=== PATIENT | female | born 1945 | race Caucasian/White ===

== ENCOUNTER 2018-12-16 09:25 | Inpatient (IN) | payer MEDICARE, BC ==
[2018-12-18] MEDS ORDERED: Magnesium Hydroxide LIQ* 30 ML UDC PO PRN (09:45)
[2018-12-18] MEDS ORDERED: Bisacodyl SUPP* 10 MG SUPP PR PRN (09:45)
[2018-12-18] MEDS ORDERED: Al Hydrox/Mg Hydrox/Simet LIQ* 30 ML UDC PO PRN (09:45)
[2018-12-18] MEDS ORDERED: oxyCODONE TAB* 5 MG TAB PO PRN (10:00)
[2018-12-18] MEDS ORDERED: Benzonatate CAP* 100 MG PO PRN (10:01)
--- NOTE | 2018-12-18 13:58 | HP ---
CC: Dr. Britt; Dr. Cha * REHABILITATION ADMISSION: DATE OF ADMISSION: 12/18/18 PRIMARY CARE PROVIDER: Dr. Britt. ORTHOPEDIC SURGEON: Dr. Cha. REASON FOR ADMISSION: Right hip fracture. HISTORY OF PRESENT ILLNESS: This is a 73-year-old woman who on 12/12/18 was at [facility]. She was bent over picking up packages and next thing she knew she was on the floor. She was originally taken to the emergency room at [facility], where she was found to have a right hip fracture and then she was transferred to [facility]. She was seen by Dr. Cha and taken to the OR on 12/14/18 for closed reduction and percutaneous IM fixation with short gamma nail of a right comminuted intertrochanteric fracture. She was given weightbearing as tolerated restrictions and started on Lovenox 40 mg daily for 4 weeks for DVT prophylaxis. In the postoperative phase, it has been noted that she has had some increasing tachycardia and some lower blood pressures. She has been given boluses and increased rates of IV fluids for some orthostasis as well as calcium supplementation. This has helped some, but she is remained with mild degrees of tachycardia and systolic blood pressures in the 90s intermittently. At times, she may feel a little lightheaded in transitioning from sitting to standing. Some dizziness predated her fall. She denies any chest pain, shortness of breath or pleurisy. She has a chronic cough that predates her admission as well. Prior to admission, she was independent with ADLs with mobility without any assistive device. She was modified independent for toileting and showering using adaptive equipment. With physical therapy here, she has required a moderate amount of assistance for bed mobility, minimal amount of assistance for transferring with a rolling walker and contact guard assistance for ambulating up to 50 feet. With occupational therapy, she has required total assist for lower body dressing, maximum amount of assistance for bathing and a total amount assistance for toileting. PAST MEDICAL HISTORY: 1. Hyperlipidemia. 2. Hypertension. 3. Status post right total knee replacement by Dr. Guido. 4. Status post tonsillectomy and adenoidectomy. 5. History of COPD. MEDICATIONS: Currently: 1. Multivitamin daily. 2. multivitamin daily. 3. Vitamin C 250 mg daily. 4. Lipitor 10 mg daily, substitute for Simvastatin 20 mg daily. 5. Zyrtec 10 mg daily, substitute for Claritin 10 mg daily. 6. Anoro Ellipta 62.5/25 one puff daily, patient using her own. 7. Flonase 2 sprays bilaterally daily, which is substituting for Nasonex that she uses at home. 8. Tylenol p.r.n. 9. Lovenox 40 mg subcutaneously daily. 10. Roxycodone 5 mg q.4 hours p.r.n. pain. 11. Tramadol 50 mg q. 6 hours p.r.n. pain. 12. Colace 100 mg b.i.d. 13. Senna 2 tablets q.p.m. 14. Tessalon 100 mg t.i.d. p.r.n. cough that she has only taken once. ALLERGIES: LATEX and no known drug allergies. FAMILY HISTORY: Mother, hypertension. Father, prostate cancer. Sister, breast cancer. SOCIAL HISTORY: She lives alone outside of [place]. She is since April 2018. No smoking or alcohol. She just retired from her [employer] business at the end of the year. Her [id number], Angelic Fuentes, is her healthcare proxy if she cannot make decisions for herself. Her phone number is [phone]. Her home is 1 level with no steps to enter. There is 1 step however into her washroom. REVIEW OF SYSTEMS: See history of present illness and past medical history. The remainder of 13-system review was completed. No other significant findings. PHYSICAL EXAMINATION GENERAL: Well developed, well nourished, appearing stated age. Mental Status: No acute distress. Alert and oriented x3. VITAL SIGNS: Temperature 98.2, heart rate 101, respirations 16, oxygen saturation 95% on room air, blood pressure 93/64. HEENT: Normocephalic, atraumatic. Oropharynx is clear. Moist mucous membranes. LUNGS: Shows bilateral inspiratory rales at the bases. ABDOMEN: Active bowel sounds. Soft, nontender, nondistended. EXTREMITIES: No clubbing or cyanosis. She has swelling throughout the right thigh and lower leg, more so than the left. Negative Homans'. No calf tenderness. MUSCULOSKELETAL EXAM: She has functional range of motion of all her major joints with limited testing of the right hip and knee secondary to her recent surgery. NEUROLOGICAL EXAM: Cranial nerves II through XII are intact. Upper and lower extremity motor 5/5 bilaterally with normal sensation with limited testing at the right hip and knee secondary to pain. LABORATORY DATA: Today, her white blood cell count is 6.5, hemoglobin 9, hematocrit 27, platelets 150. Sodium 139, potassium 3.8, BUN 11, creatinine 0.47, calcium 7.9, ionized calcium 1.14. Of note, she had a normal lactic acid level of 1.8 on 12/16/18 and serum osmolality was 289. IMPRESSION: A 73-year-old woman with right hip fracture. She will be admitted to [facility], so she can return to independent living. PLAN: 1. Right hip fracture: She needs to follow up with Dr. Cha. Continue weightbearing as tolerated to the right lower extremity. She has been taking minimal pain medicines and I will simplify her regimen to tramadol alone on an as needed basis. If she needs additional medication, we could add back in oxycodone 5 mg q.4 hours p.r.n. 2. DVT prophylaxis: Continue with Lovenox. She will need to be taught how to do this. 3. Tachycardia and mild hypotension: She is still being evaluated by the hospitalist for this. There is concern of increased urine output and they have ordered labs to evaluate for diabetes insipidus and endocrinology consultation. Continue to encourage oral fluids, but be aware of fluid overload as she already has some rales in both of her lungs. 4. Fluid, electrolytes, and nutrition: She has a history of vitamin D deficiency and normally takes a calcium supplement. I will also add an Oscal D one p.o. b.i.d. for now and she will have routine labs starting tomorrow. 5. Acute postoperative anemia: Follow up with labs tomorrow. Some of this may be dilutional as she has been receiving IV fluids to try to minimize tachycardia and improve her blood pressure. 6. Chronic obstructive pulmonary disease: Continue with her current medications. 7. Impaired mobility: She will be seen by Physical Therapy for bed mobility, transfer, gait, and stair training using the least restrictive assistive device. 8. Impaired self-care: She will be seen by Occupational Therapy for ADL and IADL training and equipment evaluation. 9. Advance directives. She is a full code. If she cannot make decisions for herself, her [id number], Angelic Fuentes makes decisions for her. Her phone number is [phone]. ESTIMATED LENGTH OF STAY: Approximately 10 to 14 days and return to home. [id number]/CPS #: [id number] JELENA
[2018-12-18] MEDS: Enoxaparin(*) 40 MG/0.4 ML SYR SUBCUT SCH (15:40)
[2018-12-18] MEDS: Acetaminophen TAB* 325 MG PO PRN ×2 (16:50→20:50)
[2018-12-18] MEDS: Atorvastatin* 10 MG TAB PO SCH (16:51)
[2018-12-18] MEDS: traMADol TAB* 50 MG PO PRN (18:54)
[2018-12-18] MEDS: Calcium/Vitamin D TAB 250/125* TAB PO SCH (20:50)
[2018-12-18] MEDS: Docusate CAP* 100 MG PO SCH (20:50)
[2018-12-19] MEDS: Acetaminophen TAB* 325 MG PO PRN ×2 (03:51→12:09)
[2018-12-19 05:07] LABS: ABS Basophils 0 10^3/ul (0-0.2); ABS Eosinophils 0.7 10^3/ul (0-0.6); ABS Lymphocytes 1.5 10^3/ul (1.0-4.8); ABS Monocytes 0.6 10^3/ul (0-0.8); ABS Neutrophils 3.5 10^3/ul (1.5-7.7); ABS Nucleated RBC 0 10^3/ul; Eosinophil % 11.4 %; Hematocrit 29 % (35-47); Hemoglobin 9.7 g/dl (12.0-16.0); Lymphocyte % 23.9 %; Mean Corpuscular HGB Conc 33 g/dl (31-36); Mean Corpuscular Hemoglobin 32 pg (27-31); Mean Corpuscular Volume 96 fL (80-97); Nucleated Red Blood Cells % 0.1; Platelet Count 184 10^3/ul (150-450); Red Blood Count 3.07 10^6/ul (4.00-5.40); Red Cell Distribution Width 14 % (10.5-15); White Blood Count 6.3 10^3/ul (3.5-10.8)
[2018-12-19 05:23] LABS: Albumin 2.7 g/dL (3.2-5.2); BUN/Creatinine Ratio 20.8 (8-20); Calcium 8.4 mg/dL (8.6-10.3); EGFR African American 136.1 (>60); EGFR Non-African American 112.5 (>60); Globulin 2.6 g/dL (2-4); Potassium 3.8 mmol/L (3.5-5.0); Total Bilirubin 0.8 mg/dL (0.2-1.0); Total Protein 5.3 g/dL (6.4-8.9)
[2018-12-19] MEDS: Ascorbic Acid TAB* 500 MG PO SCH (08:45)
[2018-12-19] MEDS: Fluticasone NASAL SPRAY 50MCG* 16 gm SPRAY BTL BOTH NARES SCH (08:46)
[2018-12-19] MEDS: Cetirizine* 10 MG TAB PO SCH (08:46)
[2018-12-19] MEDS: Calcium/Vitamin D TAB 250/125* TAB PO SCH ×2 (08:46→20:41)
[2018-12-19] MEDS: Docusate CAP* 100 MG PO SCH ×2 (08:46→20:41)
[2018-12-19] MEDS: traMADol TAB* 50 MG PO PRN ×2 (08:46→20:41)
[2018-12-19] MEDS: Multivitamins/Minerals TAB PO SCH (08:46)
[2018-12-19] MEDS: Prenatal Vitamin TAB PO SCH (08:46)
[2018-12-19] MEDS: UMECLIDIN MDI INH SCH (09:40)
[2018-12-19] MEDS: [UNRECOGNIZED DRUG - OTHER] INH SCH (09:40)
[2018-12-19] MEDS: Enoxaparin(*) 40 MG/0.4 ML SYR SUBCUT SCH (09:40)
[2018-12-19] MEDS: Atorvastatin* 10 MG TAB PO SCH (16:52)
--- NOTE | 2018-12-19 18:36 | PN ---
Progress Note Date of Service: 12/19/18 Note: DEREK CARCAMO was visited. Therapy notes read and reviewed. She has had a chronic cough for a year now and her doctor could not figure out why. She was supposed to see Dr. Ochoa, but broke her hip. Her BPs have been soft Current Medications: Active Medications Generic Name Dose Route Start Last Admin Trade Name Freq PRN Reason Stop Dose Admin Acetaminophen 650 mg 12/18/18 09:45 12/19/18 12:09 Tylenol Tab* PO 650 mg Q4H PRN Administration FEVER > 101 Al Hydrox/Mg Hydrox/Simethicone 30 ml 12/18/18 09:45 Maalox Plus* PO Q6H PRN INDIGESTION Ascorbic Acid 250 mg 12/19/18 09:00 12/19/18 08:45 Vitamin C Tab* PO 250 mg DAILY JASS Administration Atorvastatin Calcium 10 mg 12/18/18 17:00 12/19/18 16:52 Lipitor* PO 10 mg 1700 JASS Administration Benzonatate 100 mg 12/18/18 10:01 Tessalon Cap* PO TID PRN COUGH Bisacodyl 10 mg 12/18/18 09:45 Dulcolax Supp* [place] DAILY PRN CONSTIPATION Calcium/Vitamin D 1 tab 12/18/18 21:00 12/19/18 08:46 Oscal D Tab 250/125* PO 1 tab BID JASS Administration Cetirizine HCl 10 mg 12/19/18 09:00 12/19/18 08:46 Zyrtec* PO 10 mg DAILY JASS Administration Docusate Sodium 100 mg 12/18/18 21:00 12/19/18 08:46 Colace Cap* PO 100 mg BID JASS Administration Enoxaparin Sodium 40 mg 12/18/18 10:00 12/19/18 09:40 Lovenox(*) SUBCUT 40 mg Q24H JASS Administration Fluticasone Propionate 2 spray 12/19/18 09:00 12/19/18 08:46 Flonase Nasal [place] 50mcg* BOTH NARES 2 spray DAILY JASS Administration Magnesium Hydroxide 30 ml 12/18/18 09:45 Milk Of Magnesia Liq* PO Q6H PRN CONSTIPATION Multivitamins 1 tab 12/19/18 09:00 12/19/18 08:46 Vitamin Tab* PO 1 tab DAILY JASS Administration Multivitamins/Minerals 1 tab 12/19/18 09:00 12/19/18 08:46 Theragran/Minerals Tab* PO 1 tab DAILY JASS Administration Senna 2 tab 12/18/18 09:45 Senokot Tab* PO BEDTIME PRN CONSTIPATION Tramadol HCl 50 mg 12/18/18 10:00 12/19/18 08:46 Ultram* PO 50 mg Q6H PRN Administration PAIN Umeclidinium/Vilanterol 1 inh 12/19/18 09:00 12/19/18 09:40 Anoro 62.5/25 Ellipta Device (Nf) INH 1 inh DAILY JASS Administration Protocol Vital Signs: Vital Signs Temp Pulse Resp BP Pulse Ox 97.9 F 107 22 86/51 99 12/19/18 16:45 12/19/18 16:45 12/19/18 16:45 12/19/18 16:45 12/19/18 17:01 Lab Results: Laboratory Results - last 24 hr 12/19/18 12/19/18 04:54 04:54 WBC 6.3 RBC 3.07 L Hgb 9.7 L Hct 29 L MCV 96 MCH 32 H MCHC 33 RDW 14 Plt Count 184 MPV 8.0 Neut % (Auto) 55.3 Lymph % (Auto) 23.9 [place] % (Auto) 8.8 Eos % (Auto) 11.4 Baso % (Auto) 0.6 Absolute Neuts (auto) 3.5 Absolute Lymphs (auto) 1.5 Absolute Monos (auto) 0.6 Absolute Eos (auto) 0.7 H Absolute Basos (auto) 0 Absolute Nucleated RBC 0 Nucleated RBC % 0.1 Sodium 139 Potassium 3.8 Chloride 106 Carbon Dioxide 28 Anion Gap 5 BUN 11 Creatinine 0.53 Est GFR ( Amer) 136.1 Est GFR (Non-Af Amer) 112.5 BUN/Creatinine Ratio 20.8 H Glucose 106 H Calcium 8.4 L Total Bilirubin 0.80 AST 23 ALT 15 Alkaline Phosphatase 55 Total Protein 5.3 L Albumin 2.7 L Globulin 2.6 Albumin/Globulin Ratio 1.0 Exam: LUNGS: Clear bilaterally HEART: regular rhythm ABDOMEN: Soft EXTREMITIES: RLE Wound clean NEUROLOGIC: A & O x 3. Sensation intact. Muscle strength 5/5 UE, RLE at least 4/ 5 Assessment/Plan: 1. Right Hip Fracture: WBAT. Follow up with Dr. Cha 2. Hypotension: Monitor 3. DVT Prophylaxis: Lovenox for 4 weeks post-op 4. Advanced Directives: Full code. Daughter in law is HCP 5. COPD: Anoro/Flonase 12/19/18 18:43 12/19/18 18:44
[2018-12-20] MEDS: Acetaminophen TAB* 325 MG PO PRN ×2 (05:21→21:03)
[2018-12-20] MEDS: Ascorbic Acid TAB* 500 MG PO SCH (08:39)
[2018-12-20] MEDS: Calcium/Vitamin D TAB 250/125* TAB PO SCH ×2 (08:40→21:01)
[2018-12-20] MEDS: Fluticasone NASAL SPRAY 50MCG* 16 gm SPRAY BTL BOTH NARES SCH ×2 (08:40→21:04)
[2018-12-20] MEDS: Cetirizine* 10 MG TAB PO SCH (08:40)
[2018-12-20] MEDS: Docusate CAP* 100 MG PO SCH ×2 (08:40→21:00)
[2018-12-20] MEDS: Multivitamins/Minerals TAB PO SCH (08:41)
[2018-12-20] MEDS: Prenatal Vitamin TAB PO SCH (08:41)
[2018-12-20] MEDS: traMADol TAB* 50 MG PO PRN ×3 (10:07→23:28)
[2018-12-20] MEDS: [UNRECOGNIZED DRUG - OTHER] INH SCH (10:08)
[2018-12-20] MEDS: Enoxaparin(*) 40 MG/0.4 ML SYR SUBCUT SCH (10:08)
[2018-12-20] MEDS: UMECLIDIN MDI INH SCH (10:08)
--- NOTE | 2018-12-20 12:36 | PMRUTEAM ---
PMRU: Team Meeting Current Status: Nursing: Current Status Skin Deviations [Right Groin] Rash Skin Deviations [Bilateral Other Foot] Skin Deviations [Bilateral Arm Bruise ] Skin Deviations [Right Hip] Incision Skin Deviation Description [ s/p moisture per pt report; powder applied Right Groin] Skin Deviation Description [ dry skin Bilateral Foot] Skin Deviation Description [ Proximal drsg in place Right Hip] Distal incisions healing, GRACIELA - madelyn intact Bladder Current Status Stress incontinence - walking to bathroom to void Bowel Current Status Walking to bathroom to void Nutrition Current Status 75% of most meals Medication Current Status Pain meds given Physical Therapy: Current Status Bed Mobility Assistance Min Assist Transfer Mobility Assistance Contact Guard Assist Transfer/Bed Mobility Rolling Walker Recommended Devices Ambulation Assistance Supervision Ambulation Assistive Devices Rolling Walker Number of Feet Patient 105 Ambulated Stairs Assistance Contact Guard Assist Stairs Recommended Devices Two Rails Number of Stairs 5 Curb Not Tested Occupational Therapy: Current Status Upper Body Dressing Supervision Lower Body Dressing Max Asst Bathing Mod Assist Toileting Contact Guard Assist Toilet Transfer Contact Guard Assist Shower Transfer Contact Guard Assist Eating Independent Rec Therapy: Current Status Summary of Assessment and Sweatband Drummer met with the patient to complete RT Clinical Impression assessment. Patient was open to meeting with brief writer and was visiting with her son at the time. Patient presented euthymic with congruent affect. With prompting, the patient identified a few interests. 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 Patient has a puzzle book in her room, is open to continued leisure visits. Treatment Goals Patient will engage in recreation and leisure activities while on the unit. Treatment Plan Provide and encourage involvement in RT services. Meet with patient regularly for 1:1 leisure sessions. Social Work: Current Status Discharge Plan Return home with out patient therapy and family support Potential for Family Training TBD (pt lives alone but has support from her daughter in law) Anticipated Discharge Home Destination Anticipated Discharge no available home care [facility] in [facility] Destination Comment Discharge With out patient therapy and family support Nutrition: Current Status Monitoring Pt admitted to [facility] s/p R hip fx and closed reduction and percutaneous IM fixation 12/14/18. Pt eating 70-100% of meals so far; no evidence difficulty chewing/swallowing per nursing assessments. Soft formed BM noted yesterday; loose BM today. Skin intact; Sam 20 (low risk). Pt on appropriate regular diet. Full nutrition assessment to follow per protocol. Goals: Physical Therapy: Initial Goals Bed Mobility Assistance Independent Transfer Mobility Assistance Independent Transfer/Bed Mobility Rolling Walker Recommended Devices Ambulation Independent Ambulation Recommended Devices Rolling Walker Ambulation Distance 150 Stairs Assistance Independent Stair Recommended Devices Two Rails Number of Stairs 5 Home Exercise Program Independent Assistance Physical Therapy: Updated Goals Transfer/Bed Mobility Rolling Walker Recommended Devices Occupational Therapy: Initial Goals Goals to be Completed in (Days 7-9 ) Upper Body Bathing Routine Independent Lower Body Bathing Routine Modified Independent with Upper Body Dressing Routine Independent Lower Body Dressing Routine Modified Independent with Toilet Hygeine and Clothing Modified Independent with Management Routine Toilet Transfer Routine Modified Independent with Step-In Shower Transfer Supervision/Set Up Routine Functional Transfers for ADL Modified Independent with Grooming Routine Independent Feeding Routine Independent Nursing: Goals Bladder Goal Independent Bowel Goal Independent Nutrition Goal Independent - 100% of all meals Medication Goal Independent Nutrition: Goals Intervention Goals 1. Intake will remain adequate to promote post-op healing 2. Pt will maintain regular bowel pattern without constipation (or diarrhea) Social Work: Goals Discharge Plan Return home with out patient therapy and family support Potential for Family Training TBD (pt lives alone but has support from her daughter in law) Anticipated Discharge Home Destination Anticipated Discharge no available home care [facility] in [facility] Destination Comment Discharge With out patient therapy and family support Care Plan: Care Plan ADL's - Improve/Maintain Start: 12/18/18 16:41 Freq: DAILY Status: Active Target: Protocol: Activity Type Activity Date Activity User E-Sign Co-Sign Detail Recorded Client Recorded Date Recorded By Document 12/19/18 14:51 [id number] 12/19/18 14:52 [id number] 12/19/18 14:51 PMRU Outcome: ADL's/ADL Transfers Orders/Interventions Occupational Therapy Evaluation & Treatment Communication Tool in Patient Room Patient to receive OT 5x/wk for 60-120 Therex min/day Self Care Management UE/LE ADL's with Assist Yes: mod I ADL Transfers with Assist Yes: mod I Toileting: Transfers,Clothing Management Yes: mod I ,Hygeine w/Assist Progression Toward Outcome/Goals Progressing Outcome/Goals Met Pt is a 73 year old female s/p fall with right hip fx s/ p gamma nailing with WBAT precautions. Pt currently has R hip pain, limited R hip AROM, decreased balance, decreased endurance which limits independence with bathing, dressing, toileting, and transfers. Pt will benefit from acute skilled OT intervention in a rehabilitation setting to maximize independence and safety with ADLs and ADL transfers. Pt is agreeable to OT POC. Cardiovascular- Improve/Maintain Start: 12/18/18 16:41 Freq: QSHIFT Status: Active Target: Protocol: Activity Type Activity Date Activity User E-Sign Co-Sign Detail Recorded Client Recorded Date Recorded By Document 12/19/18 20:00 [id number] 12/19/18 21:35 [id number] 12/19/18 20:00 PMRU Outcome: Cardiovascular Vital Signs q Shift for 48hrs Then BID Yes Daily Weight Ordered No Current Cardiovascular Outcome/Goal Maintain/ Achieve Baseline HR, BP , Perfusion Maintain/ Achieve Hemodynamic Stability Free of Abnormal Cardiac Symptoms Progression Toward Outcome/Goal Progressing DVT Prophylaxis- Improve/Maintain Start: 12/18/18 16:41 Freq: QSHIFT Status: Active Target: Protocol: Activity Type Activity Date Activity User E-Sign Co-Sign Detail Recorded Client Recorded Date Recorded By Document 12/19/18 20:00 [id number] 12/19/18 21:35 [id number] 12/19/18 20:00 PMRU Outcome: DVT Prophylaxis Outcome/Goals Remains Free of DVT Complies with DVT Prophylaxis /Treatment TEDS Stockings on Every AM, Off at HS Progression Toward Outcome/Goals Progressing Discharge Planning - Improve/Maintain Start: 12/18/18 16:41 Freq: DAILY Status: Active Target: Protocol: Activity Type Activity Date Activity User E-Sign Co-Sign Detail Recorded Client Recorded Date Recorded By Document 12/20/18 00:25 [id number] 12/20/18 00:25 [id number] 12/20/18 00:25 PMRU Outcome: Discharge Planning Update Patient Family No Outcome/Goals Demonstrates Understanding of Discharge Plan Progression Toward Outcome/Goals Progressing Education-Improve/Maintain Start: 12/18/18 16:41 Freq: QSHIFT Status: Active Target: Protocol: Activity Type Activity Date Activity User E-Sign Co-Sign Detail Recorded Client Recorded Date Recorded By Document 12/19/18 20:00 [id number] 12/19/18 21:35 [id number] 12/19/18 20:00 PMRU Outcome: Education Outcome/Goals Demonstrate/ Verbalize Understanding of Written Discharge Instructions Demonstrates Skills Encourage Questions Pain/Comfort- Improve/Maintain Start: 12/18/18 16:41 Freq: QSHIFT Status: Active Target: Protocol: Activity Type Activity Date Activity User E-Sign Co-Sign Detail Recorded Client Recorded Date Recorded By Document 12/19/18 20:00 [id number] [facility]-C03 12/19/18 21:35 [id number] 12/19/18 20:00 PMRU Outcome: Pain/Comfort Outcome/Goals Demonstrates Knowledge and Use of Available Comfort Measures Achieves Acceptable Comfort/Pain Level as Determined by Patient/Condit Maintain Comfort Level Allowing Patient to Fully Participate in Rehab Progression Toward Outcome/Goals Progressing Respiratory - Improve/Maintain Start: 12/18/18 16:41 Freq: QSHIFT Status: Active Target: Protocol: Activity Type Activity Date Activity User E-Sign Co-Sign Detail Recorded Client Recorded Date Recorded By Document 12/19/18 20:00 [id number] [facility]-C03 12/19/18 21:35 [id number] 12/19/18 20:00 PMRU Outcome: Respiratory Does Patient Have a Trach No Outcome/Goals Maintain/ Improve Activity Tolerance Prevent Pneumonia/ Atelectasis Progression Toward Outcome/Goals Progressing Safety- Improve/Maintain Start: 12/18/18 16:41 Freq: QSHIFT Status: Active Target: Protocol: Activity Type Activity Date Activity User E-Sign Co-Sign Detail Recorded Client Recorded Date Recorded By Document 12/19/18 20:00 [id number] [facility]-C03 12/19/18 21:35 [id number] 12/19/18 20:00 PMRU Outcome: Safety Outcome/Goals Remain Free of Injury or Harm Cooperates with Safety Measures for Least Restrictive Environment Prevent Falls/ Injury Progression Toward Outcome/Goals Progressing Skin- Improve/Maintain Start: 12/18/18 16:41 Freq: QSHIFT Status: Active Target: Protocol: Activity Type Activity Date Activity User E-Sign Co-Sign Detail Recorded Client Recorded Date Recorded By Document 12/19/18 20:00 [id number] [facility]-C03 12/19/18 21:35 [id number] 12/19/18 20:00 PMRU Outcome: Skin Skin Risk Level Medium Outcome/Goals Maintain/ Improve Skin Intergrity Surgical Incisions Healing Progression Toward Outcome/Goals Progressing Medicine Note: Length of Stay: 1 week Anticipated Discharge Destination: Home Tentative Discharge Date: 12/27/18 Discharged to: Home
[2018-12-20] MEDS: Atorvastatin* 10 MG TAB PO SCH (16:10)
--- NOTE | 2018-12-20 19:06 | PN ---
Progress Note Date of Service: 12/20/18 Note: DEREK CARCAMO was visited. Therapy notes read and reviewed. She was discussed in interdisciplinary team rounds. Some concerns about incontinence when she stands. Will check PVR Current Medications: Active Medications Generic Name Dose Route Start Last Admin Trade Name Freq PRN Reason Stop Dose Admin Acetaminophen 650 mg 12/18/18 09:45 12/20/18 05:21 Tylenol Tab* PO 650 mg Q4H PRN Administration FEVER > 101 Al Hydrox/Mg Hydrox/Simethicone 30 ml 12/18/18 09:45 Maalox Plus* PO Q6H PRN INDIGESTION Ascorbic Acid 250 mg 12/19/18 09:00 12/20/18 08:39 Vitamin C Tab* PO 250 mg DAILY JASS Administration Atorvastatin Calcium 10 mg 12/18/18 17:00 12/20/18 16:10 Lipitor* PO 10 mg 1700 JASS Administration Benzonatate 100 mg 12/18/18 10:01 Tessalon Cap* PO TID PRN COUGH Bisacodyl 10 mg 12/18/18 09:45 Dulcolax Supp* [place] DAILY PRN CONSTIPATION Calcium/Vitamin D 1 tab 12/18/18 21:00 12/20/18 08:40 Oscal D Tab 250/125* PO 1 tab BID JASS Administration Cetirizine HCl 10 mg 12/19/18 09:00 12/20/18 08:40 Zyrtec* PO 10 mg DAILY JASS Administration Docusate Sodium 100 mg 12/18/18 21:00 12/20/18 08:40 Colace Cap* PO 100 mg BID JASS Administration Enoxaparin Sodium 40 mg 12/18/18 10:00 12/20/18 10:08 Lovenox(*) SUBCUT 40 mg Q24H JASS Administration Fluticasone Propionate 2 spray 12/20/18 21:00 Flonase Nasal [place] 50mcg* BOTH NARES BID JASS Magnesium Hydroxide 30 ml 12/18/18 09:45 Milk Of Magnesia Liq* PO Q6H PRN CONSTIPATION Multivitamins 1 tab 12/19/18 09:00 12/20/18 08:41 Vitamin Tab* PO 1 tab DAILY JASS Administration Multivitamins/Minerals 1 tab 12/19/18 09:00 12/20/18 08:41 Theragran/Minerals Tab* PO 1 tab DAILY JASS Administration Senna 2 tab 12/18/18 09:45 Senokot Tab* PO BEDTIME PRN CONSTIPATION Tramadol HCl 50 mg 12/18/18 10:00 12/20/18 16:10 Ultram* PO 50 mg Q6H PRN Administration PAIN Umeclidinium/Vilanterol 1 inh 12/19/18 09:00 12/20/18 10:08 Anoro 62.5/25 Ellipta Device (Nf) INH 1 inh DAILY JASS Administration Protocol Vital Signs: Vital Signs Temp Pulse Resp BP Pulse Ox 97.8 F 111 18 99/65 100 12/20/18 15:44 12/20/18 15:44 12/20/18 16:10 12/20/18 15:44 12/20/18 15:44 Exam: LUNGS: Clear bilaterally HEART: regular rhythm ABDOMEN: Soft EXTREMITIES: RLE Wound clean NEUROLOGIC: A & O x 3. Sensation intact. Muscle strength 5/5 UE, RLE at least 4/ 5 Assessment/Plan: 1. Right Hip Fracture: WBAT. Follow up with Dr. Cha 2. Hypotension: Monitor 3. DVT Prophylaxis: Lovenox for 4 weeks post-op 4. Advanced Directives: Full code. Daughter in law is HCP 5. COPD: Anoro/Flonase 6. Chronic Cough: has been looked at and a variety of medications have been tried. 7. Urinary Incontinence: Predates her fall. Will bladder scan to make sure not overflow incontinence 12/20/18 19:07 12/20/18 19:08
[2018-12-20] MEDS: Senna TAB PO PRN (21:00)
[2018-12-21] MEDS: Acetaminophen TAB* 325 MG PO PRN ×2 (04:50→19:08)
[2018-12-21] MEDS: Docusate CAP* 100 MG PO SCH ×2 (09:04→19:09)
[2018-12-21] MEDS: Cetirizine* 10 MG TAB PO SCH (09:09)
[2018-12-21] MEDS: Multivitamins/Minerals TAB PO SCH (09:09)
[2018-12-21] MEDS: Ascorbic Acid TAB* 500 MG PO SCH (09:09)
[2018-12-21] MEDS: Prenatal Vitamin TAB PO SCH (09:09)
[2018-12-21] MEDS: Calcium/Vitamin D TAB 250/125* TAB PO SCH ×2 (09:10→19:09)
[2018-12-21] MEDS: Enoxaparin(*) 40 MG/0.4 ML SYR SUBCUT SCH ×2 (09:10→09:11)
[2018-12-21] MEDS: traMADol TAB* 50 MG PO PRN (09:10)
[2018-12-21] MEDS: Fluticasone NASAL SPRAY 50MCG* 16 gm SPRAY BTL BOTH NARES SCH ×2 (09:12→19:11)
[2018-12-21] MEDS: UMECLIDIN MDI INH SCH (09:13)
[2018-12-21] MEDS: [UNRECOGNIZED DRUG - OTHER] INH SCH (09:13)
[2018-12-21] MEDS: Atorvastatin* 10 MG TAB PO SCH (17:10)
--- NOTE | 2018-12-21 18:29 | PN ---
Progress Note Date of Service: 12/21/18 Note: DEREK CARCAMO was visited. Therapy notes read and reviewed. She feels that her cough may have been better when she took Mucinex and Claritin. I will order. Otherwise doing okay. Current Medications: Active Medications Generic Name Dose Route Start Last Admin Trade Name Freq PRN Reason Stop Dose Admin Acetaminophen 650 mg 12/18/18 09:45 12/21/18 04:50 Tylenol Tab* PO 650 mg Q4H PRN Administration FEVER > 101 Al Hydrox/Mg Hydrox/Simethicone 30 ml 12/18/18 09:45 Maalox Plus* PO Q6H PRN INDIGESTION Ascorbic Acid 250 mg 12/19/18 09:00 12/21/18 09:09 Vitamin C Tab* PO 250 mg DAILY JASS Administration Atorvastatin Calcium 10 mg 12/18/18 17:00 12/21/18 17:10 Lipitor* PO 10 mg 1700 JASS Administration Benzonatate 100 mg 12/18/18 10:01 Tessalon Cap* PO TID PRN COUGH Bisacodyl 10 mg 12/18/18 09:45 Dulcolax Supp* MD DAILY PRN CONSTIPATION Calcium/Vitamin D 1 tab 12/18/18 21:00 12/21/18 09:10 Oscal D Tab 250/125* PO 1 tab BID JASS Administration Docusate Sodium 100 mg 12/18/18 21:00 12/21/18 09:04 Colace Cap* PO Not Given BID JASS Enoxaparin Sodium 40 mg 12/21/18 09:00 12/21/18 09:10 Lovenox(*) SUBCUT 40 mg Q24HR JASS Administration Fluticasone Propionate 2 spray 12/20/18 21:00 12/21/18 09:12 Flonase Nasal Dennis 50mcg* BOTH NARES 2 spray BID JASS Administration Guaifenesin 600 mg 12/21/18 21:00 Mucinex* PO BID JASS Magnesium Hydroxide 30 ml 12/18/18 09:45 Milk Of Magnesia Liq* PO Q6H PRN CONSTIPATION Multivitamins 1 tab 12/19/18 09:00 12/21/18 09:09 Vitamin Tab* PO 1 tab DAILY JASS Administration Multivitamins/Minerals 1 tab 12/19/18 09:00 12/21/18 09:09 Theragran/Minerals Tab* PO 1 tab DAILY JASS Administration Pto: (Claritin D 120 120 mg 12/22/18 09:00 Mg) PO BID JASS Senna 2 tab 12/18/18 09:45 12/20/18 21:00 Senokot Tab* PO 2 tab BEDTIME PRN Administration CONSTIPATION Tramadol HCl 50 mg 12/18/18 10:00 12/21/18 09:10 Ultram* PO 50 mg Q6H PRN Administration PAIN Umeclidinium/Vilanterol 1 inh 12/19/18 09:00 12/21/18 09:13 Anoro 62.5/25 Ellipta Device (Nf) INH 1 inh DAILY JASS Administration Protocol Vital Signs: Vital Signs Temp Pulse Resp BP Pulse Ox 98.3 F 99 18 107/67 100 12/21/18 16:18 12/21/18 16:18 12/21/18 16:18 12/21/18 16:18 12/21/18 16:18 Exam: LUNGS: Clear bilaterally HEART: regular rhythm ABDOMEN: Soft EXTREMITIES: RLE Wound clean NEUROLOGIC: A & O x 3. Sensation intact. Muscle strength 5/5 UE, RLE at least 4/ 5 Assessment/Plan: 1. Right Hip Fracture: WBAT. Follow up with Dr. Cha 2. Hypotension: Monitor 3. DVT Prophylaxis: Lovenox for 4 weeks post-op 4. Advanced Directives: Full code. Daughter in law is HCP 5. COPD: Anoro/Flonase 6. Chronic Cough: has been looked at and a variety of medications have been tried. 7. Urinary Incontinence: Predates her fall. Bladder scan showed no PVR 12/21/18 18:29 12/21/18 18:30
[2018-12-21] MEDS: guaiFENesin ER TAB 600 MG PO SCH (19:09)
[2018-12-21] MEDS: Senna TAB PO PRN (19:09)
[2018-12-22] MEDS: Acetaminophen TAB* 325 MG PO PRN ×2 (00:20→21:43)
[2018-12-22] MEDS: Fluticasone NASAL SPRAY 50MCG* 16 gm SPRAY BTL BOTH NARES SCH ×2 (10:00→21:48)
[2018-12-22] MEDS: guaiFENesin ER TAB 600 MG PO SCH ×2 (10:00→21:42)
[2018-12-22] MEDS: Prenatal Vitamin TAB PO SCH (10:00)
[2018-12-22] MEDS: PSEUDOEPHEDRINE PO SCH ×2 (10:00→21:45)
[2018-12-22] MEDS: LORATADINE PO SCH ×2 (10:00→21:45)
[2018-12-22] MEDS: Multivitamins/Minerals TAB PO SCH (10:00)
[2018-12-22] MEDS: traMADol TAB* 50 MG PO PRN ×2 (10:01→16:32)
[2018-12-22] MEDS: Docusate CAP* 100 MG PO SCH ×2 (10:01→21:42)
[2018-12-22] MEDS: Ascorbic Acid TAB* 500 MG PO SCH (10:01)
[2018-12-22] MEDS: Calcium/Vitamin D TAB 250/125* TAB PO SCH ×2 (10:01→21:42)
[2018-12-22] MEDS: [UNRECOGNIZED DRUG - OTHER] INH SCH (10:03)
[2018-12-22] MEDS: UMECLIDIN MDI INH SCH (10:03)
[2018-12-22] MEDS: Enoxaparin(*) 40 MG/0.4 ML SYR SUBCUT SCH (10:04)
[2018-12-22] MEDS: Atorvastatin* 10 MG TAB PO SCH (16:32)
--- NOTE | 2018-12-22 19:57 | PN ---
Progress Note Date of Service: 12/22/18 Note: DEREK CARCAMO was visited. Therapy notes read and reviewed. I met with Derek and her family as well as with the therapy team. She will be able to go home tomorrow as she is doing quite well. She was able to have a BM Current Medications: Active Medications Generic Name Dose Route Start Last Admin Trade Name Freq PRN Reason Stop Dose Admin Acetaminophen 650 mg 12/18/18 09:45 12/22/18 00:20 Tylenol Tab* PO 650 mg Q4H PRN Administration FEVER > 101 Al Hydrox/Mg Hydrox/Simethicone 30 ml 12/18/18 09:45 Maalox Plus* PO Q6H PRN INDIGESTION Ascorbic Acid 250 mg 12/19/18 09:00 12/22/18 10:01 Vitamin C Tab* PO 250 mg DAILY JASS Administration Atorvastatin Calcium 10 mg 12/18/18 17:00 12/22/18 16:32 Lipitor* PO 10 mg 1700 JASS Administration Benzonatate 100 mg 12/18/18 10:01 Tessalon Cap* PO TID PRN COUGH Bisacodyl 10 mg 12/18/18 09:45 Dulcolax Supp* AL DAILY PRN CONSTIPATION Calcium/Vitamin D 1 tab 12/18/18 21:00 12/22/18 10:01 Oscal D Tab 250/125* PO 1 tab BID JASS Administration Docusate Sodium 100 mg 12/18/18 21:00 12/22/18 10:01 Colace Cap* PO 100 mg BID JASS Administration Enoxaparin Sodium 40 mg 12/21/18 09:00 12/22/18 10:04 Lovenox(*) SUBCUT 40 mg Q24HR JASS Administration Fluticasone Propionate 2 spray 12/20/18 21:00 12/22/18 10:00 Flonase Nasal [place] 50mcg* BOTH NARES 2 spray BID JASS Administration Guaifenesin 600 mg 12/21/18 21:00 12/22/18 10:00 Mucinex* PO 600 mg BID JASS Administration Magnesium Hydroxide 30 ml 12/18/18 09:45 Milk Of Magnesia Liq* PO Q6H PRN CONSTIPATION Multivitamins 1 tab 12/19/18 09:00 12/22/18 10:00 Vitamin Tab* PO 1 tab DAILY JASS Administration Multivitamins/Minerals 1 tab 12/19/18 09:00 12/22/18 10:00 Theragran/Minerals Tab* PO 1 tab DAILY JASS Administration Pto: (Claritin D 120 120 mg 12/22/18 09:00 12/22/18 10:00 Mg) PO 120 mg BID JASS Administration Senna 2 tab 12/18/18 09:45 12/21/18 19:09 Senokot Tab* PO 2 tab BEDTIME PRN Administration CONSTIPATION Tramadol HCl 50 mg 12/18/18 10:00 12/22/18 16:32 Ultram* PO 50 mg Q6H PRN Administration PAIN Umeclidinium/Vilanterol 1 inh 12/19/18 09:00 12/22/18 10:03 Anoro 62.5/25 Ellipta Device (Nf) INH 1 inh DAILY JASS Administration Protocol Vital Signs: Vital Signs Temp Pulse Resp BP Pulse Ox 98.1 F 109 18 105/67 99 12/22/18 16:28 12/22/18 16:28 12/22/18 16:32 12/22/18 16:28 12/22/18 17:21 Exam: LUNGS: Clear bilaterally HEART: regular rhythm ABDOMEN: Soft EXTREMITIES: RLE Wound clean NEUROLOGIC: A & O x 3. Sensation intact. Muscle strength 5/5 UE, RLE at least 4/ 5 Assessment/Plan: 1. Right Hip Fracture: WBAT. Follow up with Dr. Cha 2. Hypotension: Monitor 3. DVT Prophylaxis: Lovenox for 4 weeks post-op 4. Advanced Directives: Full code. Daughter in law is HCP 5. COPD: Anoro/Flonase 6. Chronic Cough: has been looked at and a variety of medications have been tried. 7. Urinary Incontinence: Predates her fall. Bladder scan showed no PVR 12/22/18 19:57
[2018-12-22] MEDS: Senna TAB PO PRN (21:43)
[2018-12-23] MEDS: Acetaminophen TAB* 325 MG PO PRN ×2 (01:44→10:30)
[2018-12-23 05:37] VITALS: BP 106/66
[2018-12-23] MEDS: Ascorbic Acid TAB* 500 MG PO SCH (10:27)
[2018-12-23] MEDS: Calcium/Vitamin D TAB 250/125* TAB PO SCH (10:27)
[2018-12-23] MEDS: LORATADINE PO SCH (10:28)
[2018-12-23] MEDS: Docusate CAP* 100 MG PO SCH (10:28)
[2018-12-23] MEDS: guaiFENesin ER TAB 600 MG PO SCH (10:28)
[2018-12-23] MEDS: Enoxaparin(*) 40 MG/0.4 ML SYR SUBCUT SCH (10:28)
[2018-12-23] MEDS: Fluticasone NASAL SPRAY 50MCG* 16 gm SPRAY BTL BOTH NARES SCH (10:28)
[2018-12-23] MEDS: Multivitamins/Minerals TAB PO SCH (10:28)
[2018-12-23] MEDS: PSEUDOEPHEDRINE PO SCH (10:28)
[2018-12-23] MEDS: UMECLIDIN MDI INH SCH (10:29)
[2018-12-23] MEDS: Prenatal Vitamin TAB PO SCH (10:29)
[2018-12-23] MEDS: [UNRECOGNIZED DRUG - OTHER] INH SCH (10:29)
[2018-12-23] MEDS: traMADol TAB* 50 MG PO PRN (14:35)
--- NOTE | 2018-12-25 22:10 | DS ---
CC: Dr. Yoshi Britt * DISCHARGE SUMMARY: DATE OF ADMISSION: 12/18/18 DATE OF DISCHARGE: 12/23/18 DISCHARGE DIAGNOSES: 1. Right hip fracture. 2. Right total knee replacement, remote. 3. COPD. 4. Hypertension. 5. Hyperlipidemia. HISTORY OF PRESENT ILLNESS AND HOSPITAL COURSE: For complete history of the events leading up to her rehab stay, please see the history and physical dictated by Dr. Kaylen Steinberg on 12/18/18. While on the rehab unit, the patient continued to have a mild chronic cough, which she has had for over a year. It has been worked up by her primary care doctor and she had an appointment to see Dr. Ochoa, but was not able to make it because of her hip. She had slightly low blood pressures on admission, but these normalized. Otherwise, she was fairly stable from a medical point of view. She was maintained on Lovenox for DVT prophylaxis. The patient otherwise was medically stable. She was seen by both physical and occupational therapy and made good gains with both disciplines. With physical therapy at the time of admission, the patient required min assist to do a transfer. She was contact guard to ambulate with occupational therapy at the time of admission. She was supervision for upper body dressing, max assist for lower body dressing, mod assist for bathing, mod assist for toilet transfers. By the time of discharge, the patient was independent with transfers, independent ambulating 150 feet, independent going up and down 5 steps, independent with dressing, independent with toileting and toilet transfers. The patient was discharged home on . DISCHARGE DIET: Regular. DISCHARGE MEDICATIONS: 1. Vitamin C 250 mg daily. 2. Tessalon Perles 100 mg three times a day as needed. 3. Claritin-D 120 mg twice daily. 4. Lovenox 40 mg daily for 15 days. 5. Flonase 2 sprays to both nares twice daily. 6. Mucinex 600 mg twice daily. 7. Tramadol 50 mg every 6 hours as needed. 8. Anoro 62.5/25 Ellipta 1 inhalation daily. 9. Zocor 20 mg daily. SERVICES AFTER DISCHARGE: The patient will have outpatient physical therapy at [facility]. FOLLOWUP: She will follow up with her primary care doctor, Dr. Yoshi Britt as well as with her orthopedic surgeon, Dr. Dawson Cha. [id number]/[facility] #: [id number] JELENA
== END 2018-12-23 14:30 | disposition home or self-care (01) | DRG 561 ==
LOC: PMRU 12-18 14:24
PROVIDERS: ADMIT Physical Medicine & Rehabilitation; ATTEND Physical Medicine & Rehabilitation
PROC: F07Z5ZZ Bed Mobility Treatment (ICD-10-PCS; principal; 2018-12-18)
PROC: F07Z9ZZ Gait Training/Functional Ambulation Treatment (ICD-10-PCS; 2018-12-18)
PROC: F07Z8ZZ Transfer Training Treatment (ICD-10-PCS; 2018-12-18)
PROC: F08Z0ZZ Bathing/Showering Techniques Treatment (ICD-10-PCS; 2018-12-18)
PROC: F08Z1ZZ Dressing Techniques Treatment (ICD-10-PCS; 2018-12-18)
PROC: F08Z3ZZ Feeding/Eating Treatment (ICD-10-PCS; 2018-12-18)
DX: S72.141D Displaced intertrochanteric fracture of right femur, subsequent encounter for closed fracture with routine healing (principal); J44.9 Chronic obstructive pulmonary disease, unspecified; I95.9 Hypotension, unspecified; E78.5 Hyperlipidemia, unspecified; I10 Essential (primary) hypertension; E55.9 Vitamin D deficiency, unspecified; R32 Unspecified urinary incontinence; R05 Cough; Z96.651 Presence of right artificial knee joint; W18.30XD Fall on same level, unspecified, subsequent encounter; Z79.1 Long term (current) use of non-steroidal anti-inflammatories (NSAID); Z79.899 Other long term (current) drug therapy; Z91.040 Latex allergy status; Z82.49 Family history of ischemic heart disease and other diseases of the circulatory system; Z80.3 Family history of malignant neoplasm of breast; Z80.42 Family history of malignant neoplasm of prostate
CPT/HCPCS: 36415; 80053; 85025; A9270-GY; J1650

== ENCOUNTER 2019-08-01 12:29 | Inpatient (IN) | payer MEDICARE, BC ==
--- OUTSIDE RECORDS SUMMARY | 2019-08-01 18:56 | XMS REPORT | Continuity of Care Document ---
:1945 External Reference #:[id number] Author Name Golden Weinstein M.D. (transmitted by agent of provider Anel Colin) Address [address] [place] [id number] Care Team Providers Name Role Phone Yoshi Britt D.O. - Internal Care Team Information [employer]ing [employer] Manager Medicine Problems Active Problems Provider Date Localized, primary osteoarthritis Hossein Kern M.D. Onset: 05/21/2015 Traumatic arthropathy-knee Hossein Kern M.D. Onset: 05/21/2015 Acquired genu varum Hossein Kern M.D. Onset: 05/21/2015 Arthroplasty of knee Ravi Guido M.D. Onset: 12/10/2015 Knee stiff Ravi Guido M.D. Onset: 04/07/2016 Otalgia Golden Weinstein M.D. Onset: 06/29/2018 Impacted cerumepaulette Weinstein M.D. Onset: 11/09/2018 Other specified disorders of Eustachian Golden Weinstein M.D. Onset: 11/09 tube, bilateral Social History Type Date Description Comments Sex Unknown Tobacco Use Start: Unknown Never Smoked Cigarettes Tobacco Use Start: Unknown Secondhand smoke Father smoked cigars Smoking Status Reviewed: 06/14/19 Secondhand smoke Father smoked cigars ETOH Use Denies alcohol use Tobacco Use Start: Unknown Patient has never smoked Recreational Drug Use Denies Drug Use Exercise Type/Frequency Exercises regularly Exercise Type/Frequency Walks daily Inside house Allergies, Adverse Reactions, Alerts Active Allergies Reaction Severity Comments Date Latex Contact dermatitis, Urticaria 05/21/2015 Medications Active Medications SIG Qnty Indications Ordering Date Provider Proair HFA 2 puffs every 4 Unknown 108(90Base) hours as needed mcg/Act Aerosol Dymista 1 puff each Unknown 137-50mcg/Act nostril two times Suspension per day (not received yet 03/27/19) Vitamin D3 Ultra Potency one by mouth one Unknown time per month 29437Lunu Tablets OS-Steve 500-600 MG-Unit 1 by mouth one Unknown time per day Delsym As needed Unknown 30mg/5ML Suer Breo Ellipta Take 1 puff By Unknown 100-25mcg/Inh Mouth Every Day Aerosol Levocetirizine Take 1 Tablet By Unknown Dihydrochloride Mouth Every Day 5mg Tablets as Needed Tylenol Extra Strength 2 tabs by mouth Unknown 500mg every 6 hours as Tablets needed Tramadol HCL Take 1 Tablet By Unknown 50mg Tablets Mouth Every 6 Hours as Needed For Pain Mucinex 1 by mouth two Unknown 600mg Tablets ER 12HR times per day Cyclobenzaprine HCL 1 tablet by mouth Unknown 10mg q8 hours as Tablets needed muscle spasms Simvastatin 1 tab at bedtime Unknown 20mg Tablets Metrocream prn Unknown 0.75% Cream Vitamin C 1/2 by mouth Unknown 500mg Tablets every day Aspirin (Aspirin 325 mg Unknown 81mg Chewtabs for 3 weeks started 01/05/19). 1 by mouth every day Multi Complete daily Unknown Capsules History Medications Breo Ellipta 1 puff by mouth 60units R05 Lupillo Perez MD 03/27/2019 - 100-25mcg/Inh every day 04/26/2019 Aerosol Breo Ellipta 1 puff by mouth 60units R05 Lupillo Perez MD 01/16/2019 - 100-25mcg/Inh every day 01/17/2019 Aerosol Immunizations Description No Information Available Vital Signs Date Vital Result Comment 06/14/2019 1:58pm Height 61.5 inches 5'1.50" Weight 160.00 lb Heart Rate 120 /min BP Systolic Sitting 112 mmHg BP Diastolic Sitting 80 mmHg Body Temperature 97.3 F BMI (Body Mass Index) 29.7 kg/m2 03/27/2019 9:47am Height 61.5 inches 5'1.50" Weight 151.38 lb Heart Rate 118 /min BP Systolic Sitting 116 mmHg Lue large cuff BP Diastolic Sitting 86 mmHg Lue large cuff Respiratory Rate 20 /min O2 % BldC Oximetry 94 % On Ra BMI (Body Mass Index) 28.1 kg/m2 Results Test Date Facility Test Result H/L Range Note CBC Auto 01/16/2019 [facility] White Blood 6.3 10^3/uL Normal 3.5-10.[address] [place] [address] [phone] Red Blood Count 4.39 10^6/uL Normal 3.70-4.87 Hemoglobin 13.6 g/dL Normal 12.0-16.0 Hematocrit 42 % High 33-41 Mean Corpuscular Volume 95 fL Normal 80-97 Mean Corpuscular Hemoglobin 31 pg Normal 27-31 Mean Corpuscular HGB Conc 32 g/dL Normal 31-36 Red Cell Distribution Width 15 % Normal 10.5-15 Platelet Count 186 10^3/uL Normal 150-450 Mean Platelet Volume 9.0 fL Normal 7.4-10.4 Abs Neutrophils 4.0 10^3/uL Normal 1.5-7.7 Abs Lymphocytes 1.4 10^3/uL Normal 1.0-4.8 Abs Monocytes 0.5 10^3/uL Normal 0-0.8 Abs Eosinophils 0.3 10^3/uL Normal 0-0.6 Abs Basophils 0 10^3/uL Normal 0-0.2 Abs Nucleated RBC 0 10^3/uL Granulocyte % 64.1 % Lymphocyte % 22.5 % Monocyte % 8.5 % Eosinophil % 4.4 % Basophil % 0.5 % Nucleated Red Blood Cells % 0 Laboratory test 01/16/2019 [facility] B-Type 382 pg/mL High <= [address] [place] [address] Peptide BNP [phone] Immunoglobulin E (Ige) 11.4 kU/L <= 214 1 1 Test Performed by: [facility] [address] [place] [address] Procedures Date Code Description Status 06/14/2019 39869 Remove Impacted Cerumen Completed 02/07/2019 95585 Diffusing Capacity Completed 02/07/2019 85370 Plethysmography Determination Lung Volumes & Per Airway Completed Resist 02/07/2019 05885 Pulmonary Function><Bronchodil Completed 12/17/2018 10466 EKG, Interpretation Only Completed Medical Devices Description No Information Available Encounters Type Date Location Provider Dx Diagnosis Office Visit 03/27/2019 [facility] Lupillo Perez R05 Cough 10:15a [facility] Office Visit 01/16/2019 [facility] Frida Gregorio Cough 9:15a [facility] S[facility] Dis[facility] 9:46a adrian Delgado MD intertrochan[facility] fracture of right femur, init I95.1 Orthostatic hypotension R35.8 Other polyuria [facility] 9:46a adrian Delgado MD fracture of right femur, init I95.1 Orthostatic hypotension E78.5 Hyperlipidemia, unspecified J44.9 Chronic obstructive pulmonary disease, unspecified [facility] 9:45a adrian Delgado intertrochanteric Obey Peterson MD fracture of right femur, init I95.1 Orthostatic hypotension J44.9 Chronic obstructive pulmonary disease, unspecified E78.5 Hyperlipidemia, unspecified Assessments Date Code Description Provider 06/14/2019 H90.5 Unspecified sensorineural hearing Golden Weinstein M.D. loss 06/14/2019 H61.23 Impacted cerumen, bilateral Golden Weinstein M.D. 03/27/2019 R05 Cough Lupillo Perez MD 02/07/2019 R05 Benjamin Ochoa MD 02/07/2019 S72.141D Displaced intertrochanteric fracture Dawson Cha MD of right femur, subsequ 01/16/2019 R05 Benjamin Perez MD 01/04/2019 S72.141D Displaced intertrochanteric fracture Dawson Cha MD of right femur, subsequ 12/18/2018 S72.141A Displaced intertrochanteric fracture Mamadou Peterson MD of right femur, init 12/18/2018 I95.1 Orthostatic hypotension Mamadou Peterson MD 12/18/2018 R35.8 Other polyuria Mamadou Peterson MD 12/17/2018 R94.31 Abnormal electrocardiogram [ECG] Mariam Barkley M.D. [EKG] 12/17/2018 S72.141A Displaced intertrochanteric fracture Keron Singh, PA-C of right femur, initial 12/17/2018 S72.141A Displaced intertrochanteric fracture Mamadou Peterson MD of right femur, init 12/17/2018 I95.1 Orthostatic hypotension Mamadou Peterson MD 12/17/2018 E78.5 Hyperlipidemia, unspecified Mamadou Peterson MD 12/17/2018 J44.9 Chronic obstructive pulmonary Mamadou Peterson MD disease, unspecified 12/16/2018 S72.141A Displaced intertrochanteric fracture Amber Conway RPA-C of right femur, init 12/16/2018 S72.141A Displaced intertrochanteric fracture Mamadou Peterson MD of right femur, init 12/16/2018 I95.1 Orthostatic hypotension Mamadou Peterson MD 12/16/2018 J44.9 Chronic obstructive pulmonary Mamadou Peterson MD disease, unspecified 12/16/2018 E78.5 Hyperlipidemia, unspecified Mamadou Peterson MD Plan of Treatment 06/14/2019 - Golden Weinstein M.D.H90.5 Unspecified sensorineural hearing lossComments:Cerumen was removed, patient is scheduled for an audiogram. Recheck back after audiogram.H61.23 Impacted cerumen, bilateral Functional Status Description No Information Available Mental Status Description No Information Available Referrals Description No Information Available
[2019-08-01 20:47] LABS: ABS Basophils 0.1 10^3/ul (0-0.2); ABS Eosinophils 0.3 10^3/ul (0-0.6); ABS Lymphocytes 1.5 10^3/ul (1.0-4.8); ABS Monocytes 0.7 10^3/ul (0-0.8); ABS Neutrophils 6.2 10^3/ul (1.5-7.7); Hematocrit 41 % (35-47); Hemoglobin 13.4 g/dL (12.0-16.0); Lymphocyte % 17.2 %; Mean Corpuscular HGB Conc 32 g/dL (31-36); Mean Corpuscular Hemoglobin 31 pg (27-31); Mean Corpuscular Volume 95 fL (80-97); Mean Platelet Volume 7.9 fL (7.4-10.4); Nucleated Red Blood Cells % 0.1; Platelet Count 231 10^3/uL (150-450); Red Blood Count 4.34 10^6 /uL (3.70-4.87); Red Cell Distribution Width 17 % (10-15); White Blood Count 8.8 10^3/uL (3.5-10.8)
[2019-08-01 21:00] LABS: Activated Partial Thrombo Time 34.5 seconds (26.0-38.0); INR 1.39 (0.82-1.09)
[2019-08-01 21:04] LABS: BUN/Creatinine Ratio 22.2 (8-20); Calcium 8.3 mg/dL (8.6-10.3); EGFR African American 111.5 (>60); EGFR Non-African American 92.1 (>60); Globulin 2.9 g/dL (2-4); Magnesium 1.8 mg/dL (1.9-2.7); Potassium 4.2 mmol/L (3.5-5.0); Total Bilirubin 0.6 mg/dL (0.2-1.0); Total Protein 5.9 g/dL (6.4-8.9)
[2019-08-01 21:05] LABS: Troponin I 0.02 ng/mL (<0.04)
[2019-08-01] MEDS ORDERED: Magnesium Sulfate 2 GM IV* 2 GM/50 ML BAG IVPB ONE (22:00)
[2019-08-01] MEDS: Atorvastatin* 10 MG TAB PO SCH (22:08)
--- NOTE | 2019-08-01 23:08 | HP ---
HISTORY AND PHYSICAL: DATE OF ADMISSION: 08/01/19 PRIMARY CARE PROVIDER: Dr. Yoshi Britt. ADMITTING PROVIDER: Larry Manning MD CHIEF COMPLAINT: Shortness of breath, lower extremity edema, need for cardiology consultation(transferred from [facility] with acute severe systolic CHF (new onset)). HISTORY OF PRESENT ILLNESS: Marla Fuentes is a 73-year-old female with PMH of diet-controlled hypertension, hyperlipidemia, seasonal allergies. She presented to [facility] 4 days ago on 07/28/19 with worsening shortness of breath, dyspnea on exertion. She had new nausea and vomiting both that morning and at dinner time and prompted her to seek evaluation. Her feet had been swollen for several months and seems to have been progressive up her legs for at least 2 or 3 days prior to that admission. She was requiring 4 L of oxygen on presentation and had an elevated BNP of 2340 and a chest x-ray suggestive of mild CHF. There was suspicion of acute CHF of new onset and she was started on low-dose 3.125mg Coreg and Aldactone 25 mg p.o. b.i.d. and given Lasix 40 mg IV. Her blood pressures dipped down into the 90s systolically for the most of the next few days and she got an echocardiogram on 07/31/19, which showed an EF of less than 20% with severe global hypokinesis and some grade 1 diastolic dysfunction and [id number] pulmonary hypertension with RVSP of 56 mmHg, [id number]-kilmzeda aortic valve regurgitation, [id number]-quphvgot mitral valve regurgitation, moderate tricuspid regurgitation. She has also had a CT chest noncontrast on 07/30/19, which showed some pulmonary edema and some trace pericardial effusion. She was unable to get further diuresis given the low blood pressures. The case was discussed with Surgical Garment Fitter Dr. Daniel given her failure to improve and low blood pressures and concern for need for expert cardiology opinion, which was not available at [facility], so she was transferred to [facility] via direct admission. She today is feeling like she is still short of breath with exertion. She is on 2 L of oxygen. She denies any fevers, chills, night sweats, headaches, diarrhea, constipation. She did have gain in weight from 156lb at home a week prior to 165lb on admission to [facility]. She denies any chest pain, jaw pain, neck pain. She does have some orthopneas of 2 pillows for at least 3 to 4 months. She is a fairly poor historian in terms of time course. She has been seen by Dr. Perez and an gallery intern for her chronic cough and dyspnea on exertion. She also had an elevated troponin of 0.07 on 10/05. PAST MEDICAL HISTORY: Hyperlipidemia, vitamin D deficiency, seasonal allergies , diet-controlled hypertension. MEDICATIONS: Include: 1. Fluticasone 50 mcg both nares daily. 2. Calcium carbonate 600 mg p.o. daily. 3. Breo-Ellipta 1 puff inhaled daily. 4. Theragran multivitamin 1 tab p.o. daily. 5. Ascorbic acid 250 mg p.o. daily. 6. Aspirin 81 mg daily. 7. Levocetirizine (Xyzal) 1 tab p.o. q.p.m. 8. Simvastatin 20 mg p.o. q.p.m. 9. Mometasone (Nasonex) 2 sprays both nares daily. 10. Ergocalciferol 5000 units p.o. daily. PAST SURGICAL HISTORY: Tonsillectomy, right hip ORIF in November 2018, right knee surgery. ALLERGIES: LASIX (rash). FAMILY HISTORY: Father at age 85, he had prostate cancer. Mother at age 96 of old age. Sister is alive at age 87 and has COPD. Brother Andrea is relatively healthy living locally. Brother Michael lives in [place], he had a severe hemorrhagic CVA. SOCIAL HISTORY: The patient is a never smoker, but was around a lot of second hand smoke and wood stoves (she previously owned a bar/restaurant). She has never been a drinker herself. No drug use. Medical surrogate is her daughter- in-law, Fiona Fuentes. She desires to be a full code. REVIEW OF SYSTEMS: A complete 14-point review of systems is negative except as per HPI. PHYSICAL EXAMINATION GENERAL APPEARANCE: In no acute distress. VITAL SIGNS: Blood pressure 98/74, heart rate 114, satting well on 2 L, heart rate on the telemetry currently the high 90s, respiratory rate 16. Temp 97.3 HEENT: Normocephalic, atraumatic. Pupils equal, round, and reactive to light. Extraocular motions are intact. Nose clear. NECK: Supple. LUNGS: With diffuse crackles, worse at the bases, better as you ascend. No rhonchi or wheezing. CARDIOVASCULAR: Regular rate and rhythm. No murmurs, rubs, or gallops. ABDOMEN: Soft, nontender, nondistended. No rebound. No guarding. EXTREMITIES: Warm, well perfused. There is 2+ pitting edema in b/l the legs with 1+ into the dependent buttocks. NEUROLOGIC: Cranial nerves II through XII intact. Electrician strength intact. SKIN: No lesions or rashes. DIAGNOSTIC STUDIES/LAB DATA: Labs pending. EKG pending. ASSESSMENT AND PLAN: Marla Fuentes is a 73-year-old female with new onset of severe systolic heart failure in the setting of dyspnea on exertion and increasing lower extremity edema over the course of weeks to months, EF was less than 20% with severe global hypokinesis on echo yesterday. Diuresis has been limited by low blood pressures in the 90s. Cardiology will be consulted in the morning to help manage. I am getting basic admission labs, CBC, CMP, troponin, INR (which was notably elevated on admission at [facility] at 1.51), PTT , magnesium. Strict I's and O's, daily weights. Await on admission labs and blood pressure trend before deciding on diuresis. She could potentially trial a Lasix drip, but that might require transfer to intensive care unit. For the rest of her other problems, continue her inhalers and allergy medications like levocetirizine, Breo, Flonase. For hyperlipidemia, continue simvastatin and aspirin, continue at 81 mg. I will put her on heparin versus Lovenox DVT prophylaxis (await on renal function on admission labs). It was noted her her most recent creatinine was 0.8, so likely can get by with Lovenox. I will put her on heart healthy diet. No caffeine. She wants to be a full code. Inpatient status. Medical surrogate is her [id number]-dio, Fiona Fuentes. [id number]/[facility] #: [id number] JELENA
[2019-08-02] MEDS: Aspirin 81 mg CHEW TAB* 81 MG TAB.CHEW PO SCH (08:23)
[2019-08-02] MEDS: Multivitamins/Minerals TAB PO SCH (08:23)
[2019-08-02] MEDS: Fluticasone NASAL SPRAY 50MCG* 16 gm SPRAY BTL BOTH NARES SCH (08:23)
[2019-08-02] MEDS: Enoxaparin(*) 40 MG/0.4 ML SYR SUBCUT SCH (08:24)
[2019-08-02] MEDS: Mometasone/Formoter 100/5 MDI INH SCH ×2 (08:34→19:13)
[2019-08-02] MEDS ORDERED: Pneumococcal *Vac Polyvalent 0.5 ML VIAL IM ONE (09:00)
[2019-08-02] MEDS ORDERED: Influenza VAC *QUAD* 2019-20* 0.5 ML SYRINGE IM ONE (09:00)
[2019-08-02] MEDS ORDERED: Mometasone NASAL (NF) SPRAY BOTH NARES SCH (09:00)
[2019-08-02] MEDS ORDERED: Furosemide IV* 10 MG/ML 2 ML VIAL (20 MG) IV ONE (09:07)
[2019-08-02 09:49] LABS: BUN/Creatinine Ratio 16.4 (8-20); Calcium 8.4 mg/dL (8.6-10.3); EGFR African American 103.8 (>60); EGFR Non-African American 85.8 (>60); Potassium 4.2 mmol/L (3.5-5.0); Total Bilirubin 0.8 mg/dL (0.2-1.0)
[2019-08-02] MEDS ORDERED: Acetaminophen TAB* 325 MG PO PRN (11:15)
[2019-08-02 11:30] LABS: Free T3 3.1 pg/mL (2.5-3.9); TSH (Thyroid Stimulating Horm) 4.76 mcIU/mL (0.34-5.60)
[2019-08-02 11:31] LABS: Free T4 1.08 ng/dL (0.61-1.12)
[2019-08-02 12:46] LABS: Magnesium 2.3 mg/dL (1.9-2.7)
--- NOTE | 2019-08-02 12:50 | CONS ---
CC: Dr. Jonna Mann; Dr. Yoshi Britt * CONSULTATION REPORT: DATE OF CONSULT: 08/02/19 ATTENDING PHYSICIAN: Dr. Jonna Mann.* (DICTATED BY CANELO JUAREZ NP) PRIMARY PHYSICIAN: Dr. Yoshi Britt. CHIEF COMPLAINT: Pallor, nausea, vomiting, shortness of breath, weight gain, edema. HISTORY OF PRESENT ILLNESS: This is a 73-year-old female patient with history of hyperlipidemia; hypertension, managed through diet; reported COPD, who presented to [facility] on 07/28/19 due to increased shortness of breath , dyspnea on exertion, nausea, vomiting, pallor. While being evaluated at [facility], initial troponin was 0.09 and trended down to 0.07. BNP was 2340. She required oxygen due to hypoxia. Chest x-ray according to medical records was suggestive of mild congestive heart failure. She was started on low -dose Coreg and Aldactone therapy. She became hypotensive, thus medication management was difficult. Echocardiogram was updated on 07/31/19; per report, LVEF less than 20% with severe decrease in global wall motion, grade 1 diastolic dysfunction, severe global hypokinesis, moderate left atrial dilatation, ydeh-kd-uumzelqv aortic insufficiency, jbfq-hl-frgormle mitral regurgitation, moderate tricuspid regurgitation with jssdjazb-fy-mumowv pulmonary hypertension, left ventricular end diastole was 6.5 cm. She was transferred to [facility] on 08/01/19 for high level of care. At this current time, she reports shortness of breath, feeling of abdominal distention, and edema. She denies ever having chest pain. She denies dizziness , syncope, or palpitations. Retrospectively, she adds that she has been having progressive dyspnea on exertion since at least April, although symptoms have escalated in the past 2 to 3 weeks. She denies any recent illness, infection, or diarrhea. Apparently, she saw Dr. Britt at the end of June and no medication changes or diagnostic studies were ordered at that time. Last ischemic evaluation none. Last echocardiogram as mentioned 07/31/19, I did speak to Dr. Britt' office to confirm that she has never had an echocardiogram prior to that. PAST MEDICAL HISTORY: 1. Reported hypertension, on medical therapy. 2. Hyperlipidemia. 3. Orthostatic hypotension postsurgery in 2019. 4. Vitamin D deficiency. 5. Arthritis. 6. Reported COPD. 7. Newly diagnosed systolic dysfunction. 8. A 3.8 ascending aortic aneurysm. 9. Ssdpqpis-qs-jkqapu pulmonary hypertension. 10. Oqxq-rc-lhcguekb tricuspid regurgitation. 11. Htpp-vx-qtuhrqtf mitral insufficiency. PAST SURGICAL HISTORY: Includes: 1. Tonsillectomy. 2. Right hip ORIF in November 2018. 3. Right knee surgery in 2016. ALLERGIES: Reported LASIX allergy, which causes rash. Denies allergy to contrast dye or shellfish or aspirin. FAMILY HISTORY: Father at the age of 85, he had prostate cancer. Mother at age 96 due to old age. Sister is alive at age 87 and has COPD. Brother , Andrea, is in relatively good health, he lives locally. Her brother, Michael, lives in [place] and has a history of hemorrhagic stroke. SOCIAL HISTORY: The patient is , lives at home alone. She previously worked at a [employer], retired a year ago. Denies tobacco use, drug use, or alcohol use. She is a full code. REVIEW OF SYSTEMS: All systems have been reviewed and otherwise negative except as above mentioned in the HPI. PHYSICAL EXAMINATION: Temperature 97.3, pulse 84, respirations 20, oxygenation 97% on 2 L nasal cannula, blood pressure 194/60. General: The patient is sitting in chair, eating breakfast upon entering room, does not appear to be in any apparent distress. She is alert and oriented x3. HEENT: Head is atraumatic, normocephalic. Oral mucosa is moist. Tongue is in midline. Neck: Trachea midline. Positive JVD. No carotid bruits. Cardiac: Diminished S1, S2. Regular rate and rhythm. I am not able to auscultate a murmur. No rub. Positive gallop. Lungs: Auscultated posteriorly, inspiratory and expiratory rales noted in bilateral bases. Respirations are nonlabored. /GI: Abdomen is distended, firm, nontender, normoactive bowel sounds x4. Extremities: 3+ pretibial edema noted on right side, 2+ pretibial edema noted on left side. Trace pitting thigh edema noted. Peripheral Vascular: 3+ dorsalis pedis pulse bilaterally and symmetrically. Skin: Intact. No evidence of jaundice, rashes , or ecchymosis appreciated. DIAGNOSTIC STUDIES/LAB DATA: Blood work reviewed from [facility]. Troponin was 0.09 on 07/28/19. BNP 2340. INR was 1.5. She has had transaminitis, which is improving. Most recent chemistry, 08/02/16; sodium 137 , potassium 4.2, chloride 101, carbon dioxide 33, BUN is 11, creatinine 0.67, glucose 115. AST 40, ALT 78, alk phos 117. BNP greater than 1300. Albumin is 3.0. INR is currently 1.39. CBC from 08/01/19, white count 8.8, hemoglobin 13.4, hematocrit 41, platelets 231. ECG obtained 08/01/19 reviewed; sinus tachycardia, rate 100 with intraventricular conduction delay. She has lateral T-wave flattening. No ST elevation or depression appreciated. This is comparable to prior ECG from December 2018. ASSESSMENT AND PLAN: 1. Newly diagnosed systolic heart failure, left ventricular ejection fraction less than 20% with severe global hypokinesis, left ventricular end diastole 6.5 cm. She has associated jgkc-ju-loxkoilo mitral insufficiency and moderate-to- severe pulmonary hypertension. She is decompensated with 3+ pretibial edema noted ascending into her thighs with abdominal distention. She appears to be having hepatic congestion related to heart failure and transaminitis has improved in addition to INR with diuresis. Unfortunately, she became hypotensive with trial of Coreg and Aldactone therapy, thus medications were stopped. In the past, according to prior medical records in 2015, she has had a history of orthostatic hypotension. Her systolic blood pressure at her most recent office visit at Dr. Britt in June was 130. She states that her home blood pressure is usually at 100 to 130 systolic. At this current time, I recommended initiating a gentle dose of IV diuresis as a trial. We will order IV Lasix 20 mg and monitor blood pressure closely. Depending upon hemodynamic response, she may need transfer to the ICU with pressor support for her hemodynamics. She will eventually need left heart catheterization. She will be at high risk given her severe LV dysfunction. At this current time, she needs diuresis therapy. We can consider speaking to the advanced heart failure clinic team at [facility], however, first I would like to optimize her volume status. Etiology of cardiomyopathy is unclear at this time given symptoms have been progressive and ongoing for several months with recent acceleration in the past 3 weeks. She had sudden nausea and vomiting evening and Wednesday morning, but otherwise denies any other infectious symptomatology. We will weigh the patient daily strict intake, output, low sodium and fluid restricted diet. 2. Hypotension. The patient has a tendency for hypotension upon review of medical records. Coreg and Aldactone on hold at this current time. We will monitor closely with IV diuresis. 3. Troponinemia. Troponin peaked at presentation at 0.09 per [facility] medical records, likely due to decompensated systolic dysfunction. She will need an eventual ischemic evaluation. She is on aspiring therapy. Denies ever experiencing chest pain. 4. Transaminitis, improving with IV diuresis, likely due to above #1. 5. Disposition: Pending course. The patient is full code. Case discussed with Dr. Jonna Mann. He agrees with the above assessment and plan. Thank you for this kind consultation. We will follow the patient closely. CANELO JUAREZ NP [id number]/[facility] #: [id number] JELENA
--- NOTE | 2019-08-02 16:14 | PN ---
Subjective Date of Service: 08/02/19 Interval History: Patient seen and examined. Complaints of SOB with minimal exertion, mild unproductive cough. Denies chest pain,no fevers or chills. No further complaints. Objective Active Medications: Acetaminophen (Tylenol Tab*) 650 mg PO Q6H PRN PRN Reason: MILD PAIN OR FEVER > 100.4 Last Admin: 08/02/19 12:01 Dose: 650 mg Aspirin (Aspirin 81 Mg Chew Tab*) 81 mg PO DAILY [facility] Last Admin: 08/02/19 08:23 Dose: 81 mg Atorvastatin Calcium (Lipitor*) 10 mg PO QPM [facility] Last Admin: 08/01/19 22:08 Dose: 10 mg Cetirizine HCl (Zyrtec*) 10 mg PO QPM [facility] Enoxaparin Sodium (Lovenox(*)) 40 mg SUBCUT Q24H [facility] Last Admin: 08/02/19 08:24 Dose: 40 mg Fluticasone Propionate (Flonase Nasal [place] 50mcg*) 2 spray BOTH NARES DAILY [facility] Last Admin: 08/02/19 08:23 Dose: 2 spray Furosemide (Lasix Iv*) 20 mg IV BID [facility] Mometasone Furoate/Formoterol Fumar (Dulera 100/5 Mdi*) 2 puff INH BID [facility] Last Admin: 08/02/19 08:34 Dose: Not Given Multivitamins/Minerals (Theragran/Minerals Tab*) 1 tab PO DAILY [facility] Last Admin: 08/02/19 08:23 Dose: 1 tab Vital Signs - 8 hr 08/02/19 08/02/19 08/02/19 11:05 12:48 15:15 Temperature 96.8 F 97.6 F Pulse Rate 105 95 87 Respiratory 16 20 Rate Blood Pressure 114/68 91/66 88/61 (mmHg) O2 Sat by Pulse 96 100 Oximetry Oxygen Devices in Use Now: Nasal Cannula Appearance: alert, NAD Eyes: PERRLA Ears/Nose/Mouth/Throat: Mucous Membranes Moist Neck: NL Appearance and Movements; NL JVP, Trachea Midline Respiratory: Symmetrical Chest Expansion and Respiratory Effort, Clear to Auscultation Cardiovascular: - - irregular, tachy Abdominal: NL Sounds; No Tenderness; No Distention Extremities: - - generalized edema Skin: No Rash or Ulcers Neurological: Alert and Oriented x 3 Nutrition: Taking PO's Result Diagrams: 08/01/19 20:35 08/02/19 09:25 Assess/Plan/Problems-Billing Assessment: This is a 73 year old female patient that was direct admitted from [facility] with new onset acutely decompensated heart failure. - Patient Problems (1) Acute decompensated heart failure Code(s): I50.9 - HEART FAILURE, UNSPECIFIED SNOMED Code(s): 60136901 Comment: - Systolic HF, new, with EF of 20% with anasarca - Per RN, had one run of self-limited VT, asymptomatic - Diurese per cardiology, currently trialing lasix, must monitor BP for hypotension - Will need [facility], she is high risk, will defer to cardiology if she will need transfer to [place] for advanced HF service - Continue supplemental O2, daily weights, low Na diet, I&Os and ASA (2) HTN (hypertension) Code(s): I10 - ESSENTIAL (PRIMARY) HYPERTENSION SNOMED Code(s): 90138315 Comment: - Currently hypotensive, monitor while diuresing (3) HLD (hyperlipidemia) Code(s): E78.5 - HYPERLIPIDEMIA, UNSPECIFIED SNOMED Code(s): 02531185 Comment: - Continue statin (4) DVT prophylaxis Code(s): MZI8344 - SNOMED Code(s): 188862297 Comment: - Lovenox SQ (5) Full code status Code(s): Z78.9 - OTHER SPECIFIED HEALTH STATUS SNOMED Code(s): 875614156 Status and Disposition: Inpatient, dispo TBD, appreciate input from cardiology.
[2019-08-02] MEDS: Atorvastatin* 10 MG TAB PO SCH (17:25)
[2019-08-02] MEDS ORDERED: Cetirizine* 10 MG TAB PO SCH (18:00)
--- NOTE | 2019-08-02 18:27 | CONSULT ---
Subjective Date of Service: 08/02/19 - CC: N/V, coughing, SOB, LE edema Interval History: See full consult note from [facility]STITUTION[facility] NUTRITION CONSULTANT Cee Lopez. Pt s/p diuresis today for CHF and shows some improvement in leg heaviness and breathing. Pt seen with son, daughter and son in law. Medications Active Medications: Acetaminophen (Tylenol Tab*) 650 mg PO Q6H PRN PRN Reason: MILD PAIN OR FEVER > 100.4 Last Admin: 08/02/19 12:01 Dose: 650 mg Aspirin (Aspirin 81 Mg Chew Tab*) 81 mg PO DAILY [facility] Last Admin: 08/02/19 08:23 Dose: 81 mg Atorvastatin Calcium (Lipitor*) 10 mg PO QPM [facility] Last Admin: 08/02/19 17:25 Dose: 10 mg Cetirizine HCl (Zyrtec*) 10 mg PO QPM [facility] Last Admin: 08/02/19 17:25 Dose: 10 mg Enoxaparin Sodium (Lovenox(*)) 40 mg SUBCUT Q24H [facility] Last Admin: 08/02/19 08:24 Dose: 40 mg Fluticasone Propionate (Flonase Nasal [place] 50mcg*) 2 spray BOTH NARES DAILY [facility] Last Admin: 08/02/19 08:23 Dose: 2 spray Furosemide (Lasix Iv*) 20 mg IV BID [facility] Mometasone Furoate/Formoterol Fumar (Dulera 100/5 Mdi*) 2 puff INH BID [facility] Last Admin: 08/02/19 08:34 Dose: Not Given Multivitamins/Minerals (Theragran/Minerals Tab*) 1 tab PO DAILY [facility] Last Admin: 08/02/19 08:23 Dose: 1 tab Home Medications: Simvastatin TAB(NF) [Zocor 20 MG (NF)] 20 mg PO QPM 11/05/15 [History Confirmed 08/01/19] Calcium Carbonate [Super Calcium] 600 mg PO DAILY 12/12/18 [History Confirmed ] Ergocalciferol CAP* [Drisdol CAP*] 50,000 unit PO MONTHLY 12/12/18 [History Confirmed 08/01/19] Mometasone NASAL (NF) [Nasonex (NF)] 2 spray BOTH NARES DAILY 12/12/18 [History Confirmed 08/01/19] Multivitamins/Minerals TAB* [Theragran/minerals TAB*] 1 tab PO DAILY 12/12/18 [ History Confirmed 08/01/19] Ascorbic Acid TAB* [Vitamin C TAB*] 250 mg PO DAILY tab 12/23/18 [Rx Confirmed 08/01/19] Fluticasone NASAL SPRAY 50MCG* [Flonase NASAL SPRAY 50MCG*] 2 spray BOTH NARES BID btl 12/23/18 [Rx Confirmed 08/01/19] Aspirin 81 mg CHEW TAB* [Aspirin Low Dose TAB*] 81 mg PO DAILY 08/01/19 [ History Confirmed 08/01/19] Fluticasone Propionate [Allergy Relief] 50 mcg BOTH NARES DAILY 08/01/19 [ History Confirmed 08/01/19] Fluticasone/Vilanterol MDI(NF) [Breo Ellipta MDI 100/25(NF)] 1 puff INH DAILY [History Confirmed 08/01/19] LevoCETirizine TAB (NF) [Xyzal TAB (NF)] 1 tab PO QPM 08/01/19 [History Confirmed 08/01/19] Albuterol HFA INHALER* INH Q6HR 08/02/19 [History] Bisacodyl [Dulcolax] 10 mg PO PRN 08/02/19 [History] Mucinex Dm ER 600-30 mg Tablet PO BID 08/02/19 [History] Oscal D TAB 250/125* QPM 08/02/19 [History] Review of Systems - Measurements Intake and Output: Intake and Output Last 24 Hours 07/31/19 08/01/19 08/02/19 08/03/19 04:59 04:59 04:59 04:59 Intake Total 100 700 Output Total 450 725 Balance -350 -25 Weight 171 lb 8 oz 171 lb 12.8 oz Intake: IV Fluids 10 Magnesium 10 IVPB 55 Magnesium 55 Oral 100 635 Output: Urine 450 650 Liquid Stool 75 Other: # Bowel Movements 1 Estimated Stool Amount Small - Review of Systems Constitutional Symptoms: Positive: Weight Gain Pulmonary: Positive: Cough Cardiology: Positive: Edema Review of Systems Statement: All other review of systems negative, unless stated above. Objective Vital Signs: Temp Pulse Resp BP Pulse Ox 96.7 F 95 26 89/59 98 08/02/19 16:00 08/02/19 16:00 08/02/19 16:00 08/02/19 16:00 08/02/19 16:00 Vital Signs - 12 hr Temp Pulse Resp BP Pulse Ox 08/02/19 16:00 96.7 F 95 26 89/59 98 08/02/19 15:15 97.6 F 87 20 88/61 100 08/02/19 12:48 96.8 F 95 16 91/66 96 08/02/19 11:05 105 114/68 08/02/19 07:18 20 08/02/19 07:15 97.3 F 84 20 94/60 97 Oxygen Devices in Use Now: Nasal Cannula Appearance: older overweight, sitting 60 degrees, comfortable. Eyes: PERRLA Respiratory: - - Crackles bilaterally 1/2-2/3 lungfields. Cardiovascular: RRR - summation madhuri Extremities: - - 2-3+ edema bilateral LE. Skin: No Rash or Ulcers Neurological: Alert and Oriented x 3 Laboratory Results: 08/01/19 20:35 08/02/19 09:25 INR (Anticoag Therapy) 1.39 (0.82-1.09) H 08/01/19 20:35 APTT 34.5 seconds (26.0-38.0) 08/01/19 20:35 Total Bilirubin 0.80 mg/dL (0.2-1.0) 08/02/19 09:25 AST 40 U/L (13-39) H 08/02/19 09:25 ALT 78 U/L (7-52) H 08/02/19 09:25 Alkaline Phosphatase 117 U/L (34-104) H 08/02/19 09:25 B-Natriuretic Peptide > 1300 pg/mL (<=100) H 08/01/19 20:35 Total Protein 6.0 g/dL (6.4-8.9) L 08/02/19 09:25 Albumin 3.0 g/dL (3.2-5.2) L 08/02/19 09:25 Globulin 3.0 g/dL (2-4) 08/02/19 09:25 Albumin/Globulin Ratio 1.0 (1-3) 08/02/19 09:25 TSH 4.76 mcIU/mL (0.34-5.60) 08/02/19 09:20 08/01/19 20:35 Troponin I 0.02 Diagnostic Imaging: Echo 07/31/19: EF <20%. 1-2+ AI, 1-2+ MR, 2+ (moderate) TR, PA pressure 55 mmhg, normal RV systolic function. CXR [place] 07/28/19: +CHF EKG Data: Serial ECG's reviewed, no acute changes over several years. Assessment/Plan 73 yo with BiV CHF and severe LV dysfunction. 20 lb weight gain from baseline. BP dropped on aldactone and Coreg in [place]. Tolerating dieresis today. Patient appears in better health than her heart function is. CM: Could be as old as a year based on 1 year hx orthopnea, coughing. LE edema was not present until after ortho sx. Fall that caused hip fx could have been from an arrhythmia, pt in [employer] and just found herself on the ground. Thyroid studies normal, large differential if non ischemic. Diurese for now. Needs cath to determine if ischemic vs non ischemic, discussed with interventional cardiology, tentatively do diagnostic cath here if able to diuese /manage adequately here. If unable to diurese further due to low BP, I would recommend ICU, pressors and diurestics. Transfer PRN refractory to management here, need for inpatient instead of out patient CHF expertise. Pt will need an external ICD when d/c'd as well.
[2019-08-02] MEDS: Furosemide IV* 10 MG/ML 2 ML VIAL (20 MG) IV SCH (21:31)
[2019-08-03] MEDS: Mometasone/Formoter 100/5 MDI INH SCH (07:31)
[2019-08-03 07:55] VITALS: BP 85/63
[2019-08-03 08:55] LABS: Anion Gap 5 mmol/L (2-11); BUN/Creatinine Ratio 16.4 (8-20); Blood Urea Nitrogen 12 mg/dL (6-24); CO2 Carbon Dioxide 34 mmol/L (22-32); Calcium 8.7 mg/dL (8.6-10.3); Chloride 98 mmol/L (101-111); EGFR Non-African American 77.7 (>60); Glucose 106 mg/dL (70-100); Potassium 4.1 mmol/L (3.5-5.0); Sodium 137 mmol/L (135-145)
--- NOTE | 2019-08-03 08:56 | PN ---
<Cee Lopez - Last Filed: 08/03/19 08:47> Subjective Date of Service: 08/03/19 - Newly found decompensated SHF Interval History: No events last night. Although SBP has been in 80-90's she is asymptomatic. Continues to deny dizziness, lightheadedness, chest pain. She adds breathing effort and leg heaviness has improved. She reports + urinary output. Offers no other complaints at this time. Medications Active Medications: Acetaminophen (Tylenol Tab*) 650 mg PO Q6H PRN PRN Reason: MILD PAIN OR FEVER > 100.4 Last Admin: 08/02/19 12:01 Dose: 650 mg Aspirin (Aspirin 81 Mg Chew Tab*) 81 mg PO DAILY [facility] Last Admin: 08/02/19 08:23 Dose: 81 mg Atorvastatin Calcium (Lipitor*) 10 mg PO QPM [facility] Last Admin: 08/02/19 17:25 Dose: 10 mg Cetirizine HCl (Zyrtec*) 10 mg PO QPM [facility] Last Admin: 08/02/19 17:25 Dose: 10 mg Enoxaparin Sodium (Lovenox(*)) 40 mg SUBCUT Q24H [facility] Last Admin: 08/02/19 08:24 Dose: 40 mg Fluticasone Propionate (Flonase Nasal [place] 50mcg*) 2 spray BOTH NARES DAILY [facility] Last Admin: 08/02/19 08:23 Dose: 2 spray Furosemide (Lasix Iv*) 20 mg IV BID [facility] Last Admin: 08/02/19 21:31 Dose: 20 mg Mometasone Furoate/Formoterol Fumar (Dulera 100/5 Mdi*) 2 puff INH BID [facility] Last Admin: 08/03/19 07:31 Dose: 2 puff Multivitamins/Minerals (Theragran/Minerals Tab*) 1 tab PO DAILY [facility] Last Admin: 08/02/19 08:23 Dose: 1 tab Objective Vital Signs: Temp Pulse Resp BP Pulse Ox 97.9 F 95 18 85/63 96 08/03/19 07:15 08/03/19 07:34 08/03/19 07:36 08/03/19 07:15 08/03/19 07:34 Oxygen Devices in Use Now: Nasal Cannula Appearance: Sitting in chair, NAD, non productive cough, A+O x3. cooperative Eyes: PERRLA Ears/Nose/Mouth/Throat: NL Teeth, Lips, Gums, Clear Oropharnyx, Mucous Membranes Moist Neck: - - + JVD, no carotid bruit. Respiratory: - - Crackles bilaterally 1/2-2/3 lungfields. Cardiovascular: RRR - summation madhuri Extremities: - - 2-3+ edema bilateral LE. Skin: No Rash or Ulcers Neurological: Alert and Oriented x 3 Lines/Tubes/Other Access: Clean, Dry and Intact Peripheral IV Laboratory Results: 08/01/19 20:35 08/02/19 09:25 INR (Anticoag Therapy) 1.39 (0.82-1.09) H 08/01/19 20:35 APTT 34.5 seconds (26.0-38.0) 08/01/19 20:35 Total Bilirubin 0.80 mg/dL (0.2-1.0) 08/02/19 09:25 AST 40 U/L (13-39) H 08/02/19 09:25 ALT 78 U/L (7-52) H 08/02/19 09:25 Alkaline Phosphatase 117 U/L (34-104) H 08/02/19 09:25 B-Natriuretic Peptide > 1300 pg/mL (<=100) H 08/01/19 20:35 Total Protein 6.0 g/dL (6.4-8.9) L 08/02/19 09:25 Albumin 3.0 g/dL (3.2-5.2) L 08/02/19 09:25 Globulin 3.0 g/dL (2-4) 08/02/19 09:25 Albumin/Globulin Ratio 1.0 (1-3) 08/02/19 09:25 TSH 4.76 mcIU/mL (0.34-5.60) 08/02/19 09:20 08/01/19 20:35 Troponin I 0.02 Laboratory Results - last 24 hr 08/02/19 08/02/19 09:20 09:25 Sodium 137 Potassium 4.2 Chloride 101 Carbon Dioxide 33 H Anion Gap 3 BUN 11 Creatinine 0.67 Est GFR ( Amer) 103.8 Est GFR (Non-Af Amer) 85.8 BUN/Creatinine Ratio 16.4 Glucose 115 H Calcium 8.4 L Magnesium 2.3 Total Bilirubin 0.80 AST 40 H ALT 78 H Alkaline Phosphatase 117 H Total Protein 6.0 L Albumin 3.0 L Globulin 3.0 Albumin/Globulin Ratio 1.0 TSH 4.76 Free T4 1.08 Free T3 3.10 Diagnostic Imaging: Echo 07/31/19: EF <20%. 1-2+ AI, 1-2+ MR, 2+ (moderate) TR, PA pressure 55 mmhg, normal RV systolic function. CXR [place] 07/28/19: +CHF EKG Data: Serial ECG's reviewed, no acute changes over several years. telemetry; reviewed Sinus tachycardia. Rate 100-110 with occasional PVCs no VT. Assessment/Plan #1 Newly diagnosed SHF; LVEF <20%, LVIDd 6.5cm with moderate to severe PHTN and mild to moderate MR. She is slowly responding to IV Lasix 20mg BID, SBP 80-90's although she is not symptomatic. Will continue current dose. Trial of Coreg and Aldactone at outlying facility was discontinued due to hypotension. Etiology not clear. TFTs are normal. She will need eventual R/LHC and lifevest. Decision as to whether or not patient is to have proceed her can be re addressed once compensated and able to undergo cardiac cath. Continue Na+ and fluid restriction with accurate I+O with daily weights. Presented at [place] with troponinemia. Peaked at presentation .09. No ischemic ECG changes appreciated. + severe global hypokinesis noted on echo. no RWMA. If unable to diurese further due to low BP, I would recommend ICU, pressors and diurestics #2 Hypotension; Upon review of records it appears she has a tendency for orthopstatic hypotension. Thus, not on medications for previous DX of HTN. She is asymptomatic at this time. #3 Transaminitis; improving with diuresis. Likely due to above #1. Coagulopathy also improved with diuresis. #4 Moderate to severe PHTN; currently receiving diuresis. Will need R/LHC once stable. #5 Disposition pending course; management limited by hemodynamics however, she is not symptomatic and tolerating gentle IV diuresis. Will follow closely. Will d/w Dr. Adam. Attending: William Adam <William Adam - Last Filed: 08/03/19 13:02> Objective Vital Signs: Temp Pulse Resp BP Pulse Ox 97.9 F 95 18 85/63 96 08/03/19 07:15 08/03/19 07:34 08/03/19 07:36 08/03/19 07:15 08/03/19 07:34 Laboratory Results: 08/01/19 20:35 08/03/19 08:26 INR (Anticoag Therapy) 1.39 (0.82-1.09) H 08/01/19 20:35 APTT 34.5 seconds (26.0-38.0) 08/01/19 20:35 Total Bilirubin 0.80 mg/dL (0.2-1.0) 08/02/19 09:25 AST 40 U/L (13-39) H 08/02/19 09:25 ALT 78 U/L (7-52) H 08/02/19 09:25 Alkaline Phosphatase 117 U/L (34-104) H 08/02/19 09:25 B-Natriuretic Peptide > 1300 pg/mL (<=100) H 08/01/19 20:35 Total Protein 6.0 g/dL (6.4-8.9) L 08/02/19 09:25 Albumin 3.0 g/dL (3.2-5.2) L 08/02/19 09:25 Globulin 3.0 g/dL (2-4) 08/02/19 09:25 Albumin/Globulin Ratio 1.0 (1-3) 08/02/19 09:25 TSH 4.76 mcIU/mL (0.34-5.60) 08/02/19 09:20 08/01/19 20:35 Troponin I 0.02 Assessment/Plan Reviewed with Ms. Lopez, Dr. Mann, and our interventionalist. Given severe CHF decompensation and Severe biventricular dysfunction, NSVT, and h/o syncope, we will arrange transfer to an advanced CHF center for futher evaluation and rx and possible EP consultation/intervention. Belkis Adam MD.
[2019-08-03 09:39] LABS: Folate > 20.00 ng/mL (>3.99)
[2019-08-03] MEDS: Multivitamins/Minerals TAB PO SCH (10:00)
[2019-08-03] MEDS: Enoxaparin(*) 40 MG/0.4 ML SYR SUBCUT SCH (10:00)
[2019-08-03] MEDS: Fluticasone NASAL SPRAY 50MCG* 16 gm SPRAY BTL BOTH NARES SCH (10:00)
[2019-08-03] MEDS: Aspirin 81 mg CHEW TAB* 81 MG TAB.CHEW PO SCH (10:00)
[2019-08-03] MEDS: Furosemide IV* 10 MG/ML 2 ML VIAL (20 MG) IV SCH (10:01)
--- NOTE | 2019-08-03 11:49 | TRS ---
CC: Dr. Britt * DATE OF ADMISSION: 08/01/2019. DATE OF TRANSFER TO [facility]: 08/03/2019. PRIMARY CARE PHYSICIAN: Dr. Britt. PRINCIPAL DIAGNOSIS: Acute decompensated systolic congestive heart failure with severe systolic dysfunction with an EF estimated to be less than 20 percent. SECONDARY DIAGNOSES: Hyperlipidemia, hypertension, seasonal allergies. DISCHARGE MEDICATIONS: 1. Tylenol 650 mg p.o. q.6 hours prn pain. 2. Aspirin 81 mg p.o. daily. 3. Lipitor 10 mg p.o. at bedtime. 4. Cetirizine 10 mg p.o. at bedtime. 5. Lovenox 40 mg subcutaneous daily. 6. Flonase two squirts both nostrils daily. 7. Lasix 20 mg IV b.i.d. 8. Dulera 100/5 two puffs inhaled twice daily. 9. Multivitamin one tab p.o. daily. HOSPITAL COURSE: Ms. Fuentes is a 73-year-old female who was transferred to [facility] from [facility] after being admitted to [place] on 07/28/2019. She was transferred to [facility] on 08/01/2019. The patient was diagnosed with severe systolic dysfunction and acute decompensated systolic congestive heart failure while at [place]. Her blood pressures were soft and she was unable to be effectively diuresed. The nurse practitioner at [place] spoke with Dr. Daniel who recommended transfer to [facility]. The patient was subsequently seen by Cardiology at [facility] on 08/02/2019. The patient is felt to need catheterization to determine if her systolic dysfunction is ischemic versus nonischemic. Her case was discussed by Dr. Mann with Interventional Cardiology. Ultimately, the decision was made to speak with the advanced heart failure specialists at [facility]. The patient has been accepted in transfer to [facility] today, 08/03/2019. She will be going straight to the catheterization lab. Currently, the patient is stable on two liters of oxygen. Her blood pressure is low at 85/63, though she is asymptomatic with this. Her heart rate is mildly elevated in the 90s. She has marked bilateral lower extremity pitting edema with the right being worse than the left. Her cardiac exam reveals a normal S1, S2 with a regular rate and rhythm. Her lungs have crackles about mcfp up bilaterally. Her abdomen is soft, nontender, nondistended. FOLLOW-UP CONCERNS: The patient is being transferred to [facility] today, 08/03/2019. ACTIVITY LEVEL: Up with assistance. CONDITION ON DISCHARGE: Guarded. DIET: NPO in preparation of going to the [facility] at [facility]. The patient was accepted to [facility] by Dr. Law. TIME SPENT: Thirty-five minutes were spent discharging this patient. [id number] #: [id number] [facility]ie
== END 2019-08-03 11:55 | disposition short-term general hospital (02) | DRG 292 ==
LOC: MEDTELE 18:52
PROVIDERS: ADMIT Hospitalist; ATTEND Hospitalist
DX: I11.0 Hypertensive heart disease with heart failure (principal); I47.2 Ventricular tachycardia; I50.23 Acute on chronic systolic (congestive) heart failure; E78.5 Hyperlipidemia, unspecified; J30.2 Other seasonal allergic rhinitis; I95.9 Hypotension, unspecified; R74.0 Nonspecific elevation of levels of transaminase and lactic acid dehydrogenase [LDH]; I49.3 Ventricular premature depolarization; I42.9 Cardiomyopathy, unspecified; M19.90 Unspecified osteoarthritis, unspecified site; I71.2 Thoracic aortic aneurysm, without rupture; R79.89 Other specified abnormal findings of blood chemistry; J44.9 Chronic obstructive pulmonary disease, unspecified; I08.3 Combined rheumatic disorders of mitral, aortic and tricuspid valves; I27.20 Pulmonary hypertension, unspecified; E55.9 Vitamin D deficiency, unspecified; Z88.8 Allergy status to other drugs, medicaments and biological substances; Z80.42 Family history of malignant neoplasm of prostate; Z82.3 Family history of stroke; Z23 Encounter for immunization; Z79.82 Long term (current) use of aspirin; Z79.01 Long term (current) use of anticoagulants
CPT/HCPCS: 36415; 80048; 80053; 82607; 82746; 83735; 83880; 84439; 84443; 84481; 84484; 85025; 85610; 85730; 90686; 90732; 93005; 94640; A9270-GY; J1650; J1940; J3475